=== PATIENT | male | born 1990 | race Caucasian/White ===

== ENCOUNTER 2019-05-31 06:24 | Emergency (ER) | payer MEDICAID, OTHER ==
[~2019-05-31] VITALS: Ht 175.3 cm; Wt 99.9 kg
[2019-05-31 08:23] VITALS: BP 121/89
== END 2019-05-31 08:26 | disposition home or self-care (01) ==
LOC: ED 06:47
DX: M25.562 Pain in left knee (principal)
CPT/HCPCS: 29505; 99284